=== PATIENT | female | born 1980 | race Caucasian/White ===

== ENCOUNTER 2024-10-04 09:38 | Emergency (ER) | payer OTHER ==
[~2024-10-04] VITALS: Ht 157.5 cm; Wt 113.4 kg
[~2024-10-04 09:38] MED LIST: NAPROSYN500 MG PO; ORPHENADRINE C100 MG PO
[2024-10-04 09:45] VITALS: PULSE 84; RESP 16; TEMP 97.9; O2SAT 100
[2024-10-04] MEDS ORDERED: DEXAMETHASONE SOD PHOS 10 MG/1 ML VIAL ONE (10:20)
[2024-10-04] MEDS: DEXAMETHASONE SOD PHOS 10 MG/1 ML VIAL IM ONE (10:22)
[2024-10-04] MEDS ORDERED: MEDROL4 M2 PO (10:28)
== END 2024-10-04 10:31 | disposition home or self-care (01) ==
LOC: ER 10:10
DX: M54.31 Sciatica, right side (principal); E78.5 Hyperlipidemia, unspecified; K21.9 Gastro-esophageal reflux disease without esophagitis; F41.9 Anxiety disorder, unspecified
CPT/HCPCS: 99282; J1100